=== PATIENT | female | born 2005 | race Caucasian/White ===

== ENCOUNTER 2024-01-10 07:20 | Emergency (ER) | payer BC, SELFPAY ==
[2024-01-10 07:24] VITALS: BP 147/89; PULSE 89; TEMP 36.7; O2SAT 100; BMI 40.7
[2024-01-10 07:42] LABS: Basophils Percent Auto 0.5 % (0.2-2.0); Eosinophils Absolute Auto 0.1 10^3/uL (0.0-0.7); Eosinophils Percent Auto 0.8 % (0.9-7.0); Hematocrit 42.3 % (36.0-48.0); Hemoglobin 14.5 g/dL (12.0-16.0); Immature Granulocytes Abs Auto 0.02 10^3/uL (0.00-0.03); Immature Granulocytes Pct Auto 0.2 % (0.0-0.5); Lymphocytes Absolute Auto 2.8 10^3/uL (1.2-3.8); Lymphocytes Percent Auto 32.7 % (20.5-60.0); Mean Corpuscular HGB Conc 34.3 g/dL (29.9-35.2); Mean Corpuscular Hemoglobin 29.2 pg (26.7-34.0); Mean Corpuscular Volume 85.1 fL (81.0-99.0); Mean Platelet Volume 9.5 fL (9.5-13.5); Monocytes Absolute Auto 0.5 10^3/uL (0.3-0.8); Neutrophils Absolute Auto 5.2 10^3/uL (1.4-6.5); Neutrophils Percent Auto 59.8 % (43.0-75.0); Platelet Count 278 10^3/uL (150-450); Red Blood Count 4.97 10^6/uL (4.20-5.40); Red Cell Distribution Width 12.4 % (11.0-15.0); White Blood Count 8.6 10^3/uL (4.0-11.0)
[2024-01-10 07:45] LABS: Bilirubin Urine NEGATIVE (NEGATIVE); Blood Urine NEGATIVE (NEGATIVE); Clarity Urine CLOUDY (CLEAR); Color Urine LT. YELLOW (YELLOW); Glucose Urine UA NEGATIVE (NEGATIVE); Ketones Urine NEGATIVE (NEGATIVE); Leukocyte Esterase Urine MODERATE (NEGATIVE); Nitrite Urine NEGATIVE (NEGATIVE); Protein Urine NEGATIVE (NEG/TRACE); Specific Gravity Urine >=1.030 (1.005-1.025); Urobilinogen Urine 0.2 EU/dL (0.2-1.0)
--- NOTE | 2024-01-10 07:57 | ED_ITS ---
HPI - Abdominal Pain General Chief Complaint: Abdominal Pain Stated Complaint: ABDOMINAL PAIN Time Seen by Provider: 01/10/24 07:25 Source: patient Mode of arrival: walk-in Limitations: no limitations History of Present Illness HPI narrative: 18-year-old female to the emergency department chief complaint of abdominal pain. She reports pain on the left side of her abdomen. It is cramping in nature. She reports it feels like menstrual cramping. It is in the upper and lower but worse in the lower abdomen. No nausea or vomiting. No dysuria, urgency, frequency, hematuria. She denies . No diarrhea. Symptoms began last evening. She reports that she is due for her menstrual period in 3 days. Related Data Previous Rx's ?Medication ?Instructions ?Recorded cephalexin 500 mg capsule 500 mg PO BID 5 days #10 caps 01/10/24 phenazopyridine 200 mg tablet 200 mg PO TID PRN bladder spasms 01/10/24 (Pyridium) #9 tabs Allergies Allergy/AdvReac Type Severity Reaction Status Date / Time Sulfa (Sulfonamide AdvReac Mild Swelling Verified 01/10/24 07:24 Antibiotics) of Lip/Tongue/Throat Review of Systems ROS Status of ROS 10 or more systems reviewed and unremark able except as noted in history and below Exam Narrative Exam Narrative: VITALS: I have reviewed the triage vital signs. GENERAL: Well developed, well appearing adult in no acute distress. NEURO: Alert and oriented. Moves all extremities. Face is symmetric and expressive. EYES: PERRL. No scleral icterus or conjunctival injection. No discharge. HENT: Normocephalic, atraumatic. Hearing is grossly intact. Nares grossly patent and without discharge. Mucous membranes moist. NECK: No JVD. Patient moves neck without restriction. CARDIO: Rhythm regular. Normal rate. No murmur, rub, or gallop. Pulses equal bilaterally in the upper and lower extremity. No lower extremity edema. PULM: Lungs clear to auscultation in all snow. No wheezes, rales, or rhonchi. No conversational dyspnea. No splinting, stridor, or accessory muscle use. GI/: Abdomen is soft. Left upper and lower abd tenderness. Normoactive bowel sounds. EXTREMITIES: Symmetric muscle bulk. No joint swelling. No clubbing, cyanosis, or deformity. SKIN: Warm and dry. Normal turgor. No rash or lesions appreciated. PSYCH: Mood, affect, and interaction is appropriate to the setting. Constitutional Vital Signs, click to edit/add: Last Vital Signs Temp 98.0 F 01/10/24 07:24 Pulse 89 01/10/24 07:24 Resp 18 01/10/24 07:24 BP 147/89 H 01/10/24 07:24 Pulse Ox 100 01/10/24 07:24 O2 Del Method Room Air 01/10/24 07:24 Course Vital Signs Vital signs: Vital Signs Temperature 98.0 F 01/10/24 07:24 Pulse Rate 89 01/10/24 07:24 Respiratory Rate 18 01/10/24 07:24 Blood Pressure 147/89 H 01/10/24 07:24 Pulse Oximetry 100 01/10/24 07:24 Oxygen Delivery Method Room Air 01/10/24 07:24 Temperature 98.0 F 01/10/24 07:24 Pulse Rate 89 01/10/24 07:24 Respiratory Rate 18 01/10/24 07:24 Blood Pressure 147/89 H 01/10/24 07:24 Pulse Oximetry 100 01/10/24 07:24 Oxygen Delivery Method Room Air 01/10/24 07:24 MDM - Abdominal Pain MDM Narrative Medical decision making narrative: 18-year-old female to the emergency department chief complaint of left lower quadrant abdominal pain. Vital stable, the patient is afebrile. Mild tenderness throughout the left side on exam. Basic labs ordered. She declines any pain medication. CBC and chemistry unremarkable. test is negative. Urinalysis is consistent with acute urinary tract infection. UTI explains the patient's symptoms well. She is prescribed Pyridium and Keflex. Return precautions were discussed. All questions were answered. The patient was discharged home Lab Data Attestation: I reviewed the patient's lab results. Labs: Lab Results 01/10/24 01/10/24 Range/Units 07:30 07:36 WBC 8.6 (4.0-11.0) 10^3/uL RBC 4.97 (4.20-5.40) 10^6/uL Hgb 14.5 (12.0-16.0) g/dL Hct 42.3 (36.0-48.0) % MCV 85.1 (81.0-99.0) fL MCH 29.2 (26.7-34.0) pg MCHC 34.3 (29.9-35.2) g/dL RDW 12.4 (11.0-15.0) % Plt Count 278 (150-450) 10^3/uL MPV 9.5 (9.5-13.5) fL Neut % (Auto) 59.8 (43.0-75.0) % Lymph % (Auto) 32.7 (20.5-60.0) % Frontier % (Auto) 6.0 (1.7-12.0) % Eos % (Auto) 0.8 L (0.9-7.0) % Baso % (Auto) 0.5 (0.2-2.0) % Neut # (Auto) 5.2 (1.4-6.5) 10^3/uL Lymph # (Auto) 2.8 (1.2-3.8) 10^3/uL Frontier # (Auto) 0.5 (0.3-0.8) 10^3/uL Eos # (Auto) 0.1 (0.0-0.7) 10^3/uL Baso # (Auto) 0.0 (0.0-0.1) 10^3/uL Abs Immat Gran (auto) 0.02 (0.00-0.03) 10^3/uL Imm/Tot Granulo (auto) 0.2 (0.0-0.5) % Sodium 139 (136-145) mmol/L Potassium 4.1 (3.5-5.1) mmol/L Chloride 105 (98-107) mmol/L Carbon Dioxide 22.4 (21.0-32.0) mmol/L Anion Gap 15.7 BUN 11.0 (6.4-19.3) mg/dL Creatinine 0.75 (0.55-1.02) mg/dL Est GFR ( Amer) >60 (>=60) Est GFR (Non-Af Amer) >60 (>=60) BUN/Creatinine Ratio 14.7 Glucose 98 (74-106) mg/dL Calcium 9.2 (8.5-10.1) mg/dL HCG, Quant <1 mIU/mL Urine Color Lt. yellow (YELLOW) Urine Clarity Cloudy A (CLEAR) Urine pH 6.0 (5.0-9.0) Ur Specific [place] >=1.030 A (1.005-1.025) Urine Protein Negative (NEG/TRACE) mg/dL Urine Glucose (UA) Negative (NEGATIVE) mg/dL Urine Ketones Negative (NEGATIVE) mg/dL Urine Occult Blood Negative (NEGATIVE) Urine Nitrite Negative (NEGATIVE) Urine Bilirubin Negative (NEGATIVE) Urine Urobilinogen 0.2 (0.2-1.0) EU/dL Ur Leukocyte Esterase Moderate A (NEGATIVE) Urine RBC 0-2 (0-2) #/HPF Urine WBC 75-100 A (NONE SEEN) #/HPF Ur Squamous Epith Cells Many A (NONE/RARE) #/LPF Urine Crystals None seen (None Seen) #/HPF Urine Bacteria Large A (NONE SEEN) #/HPF Urine Casts None seen (NONE SEEN) #/LPF Urine Mucus Moderate A (NONE SEEN) Ur Culture Indicated? Yes Discharge Plan Discharge Stand Alone Forms: Portal Instructions Chief Complaint: Abdominal Pain Clinical Impression: UTI (urinary tract infection) Patient Disposition: Home, Self-Care Time of Disposition Decision: 08:48 Condition: Good Mode of Transportation: Private Vehicle Prescriptions / Home Meds: New phenazopyridine [Pyridium] 200 mg tablet 200 mg PO TID PRN (Reason: bladder spasms) Qty: 9 0RF cephalexin 500 mg capsule 500 mg PO BID 5 Days Qty: 10 0RF Print Language: [place] Instructions: Cephalexin (By mouth), Urinary Tract Infection in Women (ED) Additional Instructions: Call the office of your primary care doctor to arrange for follow-up within the above-stated timeframe. Your ED visit was focused on your acute issue and does not replace primary care. You should review your labs, imaging, and diagnoses from this ED visit with your primary care physician. There may be non-emergent/ incidental findings that need further evaluation. You should review your vital signs including blood pressure with your PCP. If you were prescribed medications you should discuss possible side-effects and drug interactions with your pharmacist. Call 911 or go to the nearest Emergency Department if you develop any new or worsening symptoms. Seek immediate medical attention if you develop: worsening abdominal pain, new or worsening nausea, new or worsening vomiting, new or worsening diarrhea, chest pain, shortness of breath, pain with urination, problems urinating, fever, chills, weakness, or any new or worsening symptoms. Referrals: Mata Elizondo MD [Physician] - 1 week Physician,Non-Staff, [Primary Care Provider] - 1 week
[2024-01-10 08:02] LABS: RBC Urine 0-2 #/HPF (0-2); WBC Urine 75-100 #/HPF (NONE SEEN)
[2024-01-10 08:03] LABS: Bacteria Urine LARGE #/HPF (NONE SEEN); Cast Seen? NONE SEEN #/LPF (NONE SEEN); Crystals Seen? None Seen #/HPF (None Seen); Mucus Urine MODERATE (NONE SEEN); Squamous Epithelial Cell Urine MANY #/LPF (NONE/RARE); Urine Culture Indicated YES
[2024-01-10 08:17] LABS: Anion Gap 15.7; BUN Creatinine Ratio 14.7; Calcium 9.2 mg/dL (8.5-10.1); Carbon Dioxide 22.4 mmol/L (21.0-32.0); Chloride 105 mmol/L (98-107); Estimated GFR (African America >60 (>=60); Estimated GFR (Non-African Ame >60 (>=60); Glucose 98 mg/dL (74-106); Potassium 4.1 mmol/L (3.5-5.1); Sodium 139 mmol/L (136-145)
[2024-01-10 08:26] LABS: HCG Quantitative <1 mIU/mL
[2024-01-10 08:57] VITALS: BP 136/74; PULSE 78; O2SAT 98
== END 2024-01-10 08:58 | disposition home or self-care (01) ==
PROVIDERS: Emergency Provider Student in an Organized Health Care Education/Training Program
DX: N39.0 Urinary tract infection, site not specified (principal)
CPT/HCPCS: 36415; 80048; 81001; 84702; 85025; 87086; 99283